=== PATIENT | male | born 1945 | race Hispanic/Latino ===

== ENCOUNTER 2017-07-15 08:02 | Day surgery (SDC) | payer MEDICARE ==
[2017-07-15 08:20] VITALS: BMI 21.9
[2017-07-15] MEDS ORDERED: Lactated Ringer's 500 ML IV ONE (08:21)
[2017-07-15 08:38] VITALS: TEMP 96.6
[2017-07-15] MEDS ORDERED: Lidocaine PF 2% (5 ml) Inj (For Cardiac Arrhy) IV ONE (09:11)
[2017-07-15] MEDS ORDERED: Propofol 10 mg/ml Inj (20 ML) ONE (09:11)
[2017-07-15 10:24] VITALS: BP 119/60; PULSE 72; RESP 16; O2SAT 99
== END 2017-07-15 13:31 | disposition home or self-care (01) ==
LOC: H.ENDO 08:02
PROVIDERS: ATTEND Internal Medicine Gastroenterology
DX: Z12.11 Encounter for screening for malignant neoplasm of colon (principal); Z80.0 Family history of malignant neoplasm of digestive organs; D12.5 Benign neoplasm of sigmoid colon; D12.2 Benign neoplasm of ascending colon; D12.0 Benign neoplasm of cecum; K57.30 Diverticulosis of large intestine without perforation or abscess without bleeding
CPT/HCPCS: 45385; 88305; J2704; J7120